=== PATIENT | male | born 1965 | race Caucasian/White ===

== ENCOUNTER 2025-01-06 14:36 | Emergency (ER) | payer OTHER, SELFPAY ==
[2025-01-06 14:46] VITALS: BP 157/92; PULSE 84; TEMP 37.6; O2SAT 99; BMI 34.2
--- OUTSIDE RECORDS SUMMARY | 2025-01-06 14:46 | XMS_ITS | Clinical Summary ---
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 Name Role Phone Unavailable Primary Care Provider Unavailabl e Social History Tobacco UseTypesPacks/DayYears UsedDateSmoking Tobacco: Never AssessedSex and Gender InformationValueDate RecordedSex Assigned at BirthNot on fileLegal Sex Male05/23/2022 6:42 PM EDTGender IdentityNot on fileSexual OrientationNot on file Last Filed Vital Signs Vital SignReadingTime TakenCommentsBlood Fliuxdhi270/9409 12:00 PM EDT Pulse--Temperature--Respiratory Rate--Oxygen Saturation--Inhaled Oxygen Concentration--Ppieeo449 kg (263 lb)11/13/2017 12:00 PM SXMXrqygy283.8 cm (5' 10 )11/13/2017 12:00 PM EDTBody Mass Index37.7411/13/2017 12:00 PM EDT Plan of Treatment Not on file
--- OUTSIDE RECORDS SUMMARY | 2025-01-06 14:46 | XMS_ITS | Clinical Summary ---
Author Organization [facility] Address [address] [place], [place] [address] Care Team Providers Care Radio Officer Name Role Phone Tyrone Littlejohn DO Primary Care Provider Allergies Active AllergyReactionsCriticalityNoted SihoYgjmxvjwDagipkwDbfecgr45/14/2018 Sulfa (Sulfonamide Antibiotics)GI Upset08/22/2017 Medications * This document contains information received from the source organization and may not represent a complete record from that organization. MedicationSigDispense QuantityRefillsLast FilledStart DateEnd DateStatus dulaglutide (TRULICITY) 0.75 mg/0.5 mL pnij Inject subcutaneously once each week.Active metFORMIN (GLUCOPHAGE) 1,000 mg tablet Take 1,000 mg by mouth twice daily with meals.Active omeprazole (PRILOSEC) 20 mg capsule Take 20 mg by mouth once daily.Active fenofibrate (LOFIBRA) 134 mg capsule Take 134 mg by mouth daily with breakfast.Active lisinopril (ZESTRIL, PRINIVIL) 10 mg tablet Take 10 mg by mouth once daily.Active montelukast (SINGULAIR) 10 mg tablet Take 10 mg by mouth daily at bedtime.Active Active Problems ProblemNoted DateDiagnosed DateConcussion with no loss of consciousness 01/02/2018 Social History Tobacco UseTypesPacks/DayYears UsedDateSmoking Tobacco: NeverSmokeless Tobacco: CurrentChewAlcohol UseStandard Drinks/WeekCommentsYes0 (1 standard drink = 0.6 oz pure alcohol)PHQ-2AnswerDate RecordedPHQ-2 irfvs674Area Deprivation IndexAnswerDate RecordedNational Score (1-100), lower number is lower riskNot on file02/16/2020State Score (1-10), lower number is lower riskNot on file 02/16/2020Data from: https://www.neighborhoodatlas.[facility].edu/. Last address used for calculationNot on file02/16/2020Sex and Gender InformationValue Date RecordedSex Assigned at BirthNot on fileLegal FgcUxve26/02/2012 9:16 AM EST Gender IdentityNot on fileSexual OrientationNot on file Last Filed Vital Signs Vital SignReadingTime TakenCommentsBlood Ampryclf179/65008/22/2017 1:59 PM EDT Nfsuc306708/22/2017 1:59 PM WNXDpxbkitbjkc67.9 ??C (98.4 ??F)08/22/2017 1:59 PM EDTRespiratory Maqa864208/22/2017 1:59 PM EDTOxygen Jelbhaecpz94%08/22/2017 1:59 PM EDTInhaled Oxygen Concentration--Eoaigm818.4 kg (256 lb 11.2 oz)08/22/2017 1:59 PM YJXGkxyqa630.3 cm (5' 11 )08/22/2017 1:59 PM EDTBody Mass Index35.8 08/22/2017 1:59 PM EDT Plan of Treatment Health MaintenanceDue DateLast DoneCommentsAnxiety Utberqmii61/27/1985Depression Izqowulws06/27/1985HIV Mlkguyjos55/27/1985Hepatitis C Rezeklfkm58/27/1985 Hepatitis B Vaccine (1 of 3 - 19+ 3-dose series)1985Lipid Screening 2001CT Ossaxouymmzg42/27/2012Cologuard (FIT-DNA)11/05/2011Colonoscopy 11/05/2011Colorectal Cancer Ygasrtaeu49/27/2012Diabetes Nhezbwbby95/27/2012Fecal Occult Blood11/05/2011Prostate Cancer Screening Kzdhyyfeks39/27/2012 Dcjpnejodqgnw29/27/2012Pneumococcal Vaccine: 50+ (2 of 2 - PCV)2016 04/23/2011Shingrix Vaccine (1 of 2)2016Covid-19 Vaccine (1 - 2024- season)2024Influenza Vaccine (#1)/03/2015, 04/07/2013 DTaP,Tdap,Td Vaccine (2 - Td or Tdap) Insurance Care Teams Team MemberRelationshipSpecialtyStart DateEnd Date Tyrone Littlejohn DO [address] [place] [phone] PCP - GeneralFamily Medicine08/23/17
--- OUTSIDE RECORDS SUMMARY | 2025-01-06 14:46 | XMS_ITS | Encounter Summary ---
Author Organization [facility] Address [id number] [address] 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 Name Role Phone Tyrone Littlejohn DO Primary Care Provider [phone] Reason for Visit * ReasonCommentsMed Refill Encounter Details DateTypeDepartmentCare Team (Latest Contact Info)Tssnuzrvljy81/25/2025Refill [facility] [address] [place] [address] Tyrone Littlejohn DO [address], [facility] [place] [address] Social History Tobacco UseTypesPacks/DayYears UsedDateSmoking Tobacco: NeverSmokeless Tobacco: FormerChewAlcohol UseStandard Drinks/WeekCommentsYes0 (1 standard drink = 0.6 oz pure alcohol)occasionalMER[facility] UtilitiesAnswerDate RecordedIn the past 12 months has the [place], gas, oil, or water [facility] [employer] threatened to shut off services in your home?No04/13/2024UDIT-CAnswerDate RecordedQ1: How often do you have a drink containing alcohol?2-4 times a month09/19/2022Q2: How many drinks containing alcohol do you have on a typical day when you are drinking?1 or Q3: How often do you have six or more drinks on one occasion?Never07/12/2023Overall Financial Resource Strain (CARDIA)AnswerDate RecordedHow hard is it for you to pay for the very basics like food, housing, medical care, and heating?Somewhat hard10/12/2024PHQ-2AnswerDate RecordedTotal Xgxgk012Finshriners hospitals for [facility] [place] of Occupational Health - Occupational Stress QuestionnaireAnswerDate RecordedDo you feel stress - tense, restless, nervous, or anxious, or unable to sleep at night because yourmind is troubled all the time - these days?Not at all09/19/2022 Exercise Vital SignAnswerDate RecordedOn average, how many days per week do you engage in moderate to strenuous exercise (like a brisk walk)?7 days10/12/2024On average, how many minutes do you engage in exercise at this level?20 min 10/12/2024PRAPARE - TransportationAnswerDate RecordedIn the past 12 months, has lack of transportation kept you from medical appointments or from getting medications?No07/13/2024In the past 12 months, has lack of transportation kept you from meetings, work, or from getting things needed for daily living?No 07/13/2024Housing InstabilityAnswerDate RecordedAre you worried or concerned that in the next two months you may not have stable housing that you own, rent or stay in as a part of a household?No07/13/2024hildcareAnswerDate RecordedDo problems getting child care lead teacher make it difficult for you to work or study?No 09/19/2022EmploymentAnswerDate RecordedDo you need help finding a local career center and/or a training program?No09/19/2022Hunger ScreeningAnswerDate Recorded Within the past 12 months we worried whether our food would run out before we got money to buy more.Never True10/12/2024Within the past 12 months the food we bought just didn't last and we didn't have money to get more.Never True 10/12/2024Purpose - LifeAnswerDate RecordedPurpose and direction in lifeUnknown 04/21/2020ex and Gender InformationValueDate RecordedSex Assigned at BirthNot on fileLegal VmjSsto4810/14/2014 11:59 AM EDTGender IdentityNot on fileSexual OrientationNot on filedocumented as of this encounter Plan of Treatment DateTypeDepartmentCare Team (Latest Contact Info)Gelzglcbceg10/07/2025 9:00 AM ESTOffice Visit [facility] of [facility] [address] [facility] [address] [place] [address] Stephanie Contreras MD [facility] [address] [place] [address] 04/14/2025 8:30 AM ESTOffice Visit [facility] [address] [place] [phone] Tyrone Littlejohn DO [address] [place] [address] documented as of this encounter Visit Diagnoses Not on filedocumented in this encounter Additional Health Concerns AssessmentNoted TimePHQ-9 Depression Total Score: 9:25 AM EDT documented as of this encounter Care Teams Team MemberRelationshipSpecialtyStart DateEnd Date Tyrone Littlejohn DO [address], [place] [address] PCP - GeneralFamily Maxpgvkr22/2/17documented as of this encounter
--- OUTSIDE RECORDS SUMMARY | 2025-01-06 14:46 | XMS_ITS | Clinical Summary ---
Author Organization [facility] Address [id number] [address] [place] [address] Care Team Providers Care Superintendent Quarry Name Role Phone Tyrone Littlejohn Primary Care Provider Allergies Active AllergyReactionsCriticalityNoted DateCommentsSulfa (Sulfonamide Antibiotics)Nhawcdg0912/10/2016 Medications MedicationSigDispense QuantityRefillsLast FilledStart DateEnd DateStatus aspirin 81 mg Take 1 tablet (81 mg total) by mouth in the morning.Active lancets 33 gauge misc Active diphenhydrAMINE-acetaminophen (TYLENOL PM EXTRA STRENGTH) 25-500 mg tablet Active metFORMIN (GLUCOPHAGE) 1000 mg tablet TAKE 1 TABLET BY MOUTH TWICE DAILY 180 tablet 4Active albuterol (PROVENTIL HFA;VENTOLIN HFA) 90 mcg/actuation inhaler Indications:Mild intermittent asthma, unspecified whether complicatedInhale 2 puffs every 6 (six) hours as needed for wheezing. 18 g 4Active omeprazole (PriLOSEC) 20 mg capsule Take 1 capsule (20 mg total) by mouth every other day.03/09/2024ctive cinnamon bark extract 500 mg tablet Take by mouth.Active blood-glucose meter misc 1 Unit by other route in the morning and 1 Unit in the evening. Take before meals. 1 each 5Active lisinopriL (PRINIVIL,ZESTRIL) 20 mg tablet TAKE 1 TABLET(20 MG) BY MOUTH IN THE MORNING 90 tablet 5Active pen needle, diabetic (BD ULTRA-FINE MINI PEN NEEDLE) 31 gauge x 3/16 needle Indications:Type 2 diabetes mellitus without complication, without long-term current use of insulin ([facility])USE 1 NEEDLE BY MISCELLANEOUS ROUTE IN THE MORNING. 100 each 5Active topiramate (TOPAMAX) 50 mg tablet Take 1 tablet (50 mg total) by mouth in the morning. 90 tablet 5Active TRUE METRIX GLUCOSE TEST STRIP strip USE 1 STRIP IN THE MORNING AND 1 STRIP BEFORE BEDTIME 200 strip 5Active insulin glargine-yfgn 100 unit/mL (3 mL) insulin pen Inject 35 Units under the skin in the morning. 45 mL 5Active rosuvastatin (CRESTOR) 10 mg tablet TAKE 1 TABLET BY MOUTH DAILY 90 tablet 5Active montelukast (SINGULAIR) 10 mg tablet TAKE 1 TABLET(10 MG) BY MOUTH EVERY MORNING 90 tablet 5Active montelukast (SINGULAIR) 10 mg tablet TAKE 1 TABLET(10 MG) BY MOUTH EVERY MORNING 90 tablet Discontinued Active Problems ProblemNoted DateDiagnosed DateMild intermittent zghxpz9509/19/2022Environmental orrcqmkpw24/19/2022Essential elpoxeawflsk39/19/0554Fqrnwgrmt42/19/2022 Lthxoajrgocjqo02/19/2608Bdcdoov51/19/2022Type 2 diabetes nimwzjcq80/19/2022 Concussion without loss of xowerhdxoqbet70/25/2018Sleep apnea08/25/2015 Encounters DateTypeDepartmentCare WbfmLmlfujzqcrk19/25/2025Refill [facility] [address] [place] [address] Tyrone Littlejohn, DO 12/04/2024Refill [facility] [address] [place] [address] Tyrone Littlejohn, DO 10/21/2024Orders Only [facility] [address] [place] [address] Tyrone Littlejohn, DO 10/21/2024Telephone [facility] [address] [place] [address] Elenita Mathias, [facility] 10/16/2024Refill [facility] [address] [place] [address] Jyo Natarajan, [facility] 10/16/2024Refill [facility] [address] [place] [address] Tyrone Littlejohn, 10/12/2024 9:30 AM EDTOffice Visit [facility] [address] [place] [address] Tyrone Littlejohn, DO Type 2 diabetes mellitus without complication, without long-term current use of insulin ([facility]) (Primary Dx); Essential hypertension; Gastritis without bleeding, unspecified chronicity, unspecified gastritis type; Chronic nonintractable headache, unspecified headache type10/11/2024Travelfrom Last 3 Months Immunizations ImmunizationAdministration DatesNext EzeZFA1904/19/2021Influenza (IM) Preservative Free12/09/2014Influenza, Im Trivalent Kyfcgeyfozql97/28/2014Influenza, Injectable, Rrcquifqncrl29/31/2018Influenza, Injectable, quadrivalent (PF) 01/07/2020,01/29/2018Influenza, Xubekwmgsij48/01/2016Pneumococcal Conjugate 13-Jwfsyh8001/29/2018,01/08/2018Pneumococcal Iwjlsmjwnlunrx24/13/2012Tdap 04/20/2021,10/16/2015Zoster Vaccine Jwxvskqpwie87/07/2025,04/13/2024 Family History Medical HistoryRelationNameCommentsNo Known ProblemsFather1/2 tonawanda ; didn't know himMelanomaHalf Brothermaternal 1/2 10 nyears youngerHeart attack Maternal GrandfatherDiabetes type IIMaternal GrandmotherHeart attackMaternal GrandmotherOtherMaternal Grandmothermalignant neoplastic diseaseOtherMother Abdominal aortic aneurysmStrokeMotherRelationNameStatusCommentsDaughterAlive FatherDeceasedHalf BrotherAliveMaternal GrandfatherMaternal GrandmotherMother DeceasedSonAlive Social History Tobacco UseTypesPacks/DayYears UsedDateSmoking Tobacco: NeverSmokeless Tobacco: FormerChew Tobacco Cessation:Counseling Given: Not Answered Alcohol UseStandard Drinks/WeekCommentsYes0 (1 standard drink = 0.6 oz pure alcohol)occasionalAHC UtilitiesAnswerDate RecordedIn the past 12 months has the electric, gas, oil, or water company threatened to shut off services in your home?No04/13/2024UDIT-CAnswerDate RecordedQ1: How often do you have a drink containing alcohol?2-4 times a month09/19/2022Q2: How many drinks containing alcohol do you have on a typical day when you are drinking?1 or Q3: How often do you have six or more drinks on one occasion?Never09/19/2022Overall Financial Resource Strain (CARDIA)AnswerDate RecordedHow hard is it for you to pay for the very basics like food, housing, medical care, and heating?Somewhat hard10/12/2024PHQ-2AnswerDate RecordedTotal Jctxb457Finst. [facility] [place] of Occupational Health - Occupational Stress QuestionnaireAnswerDate [...] of a household?No07/13/2024hildcareAnswerDate RecordedDo problems getting child and adolescent therapist make it difficult for you to work [...] InformationValueDate RecordedSex Assigned at BirthNot on fileLegal ZxsJpkm4410/14/2014 11:59 AM EDTGender IdentityNot on fileSexual OrientationNot on file Last Filed Vital Signs Vital SignReadingTime TakenCommentsBlood Xufcpblw067/78010/12/2024 9:30 AM EDT Fpeyg292210/12/2024 9:30 AM JESAxeptgbvfcv84.4 ??C (97.6 ??F)10/12/2024 9:30 AM EDTRespiratory Gqvg660310/12/2024 9:30 AM EDTOxygen Cjjiqlusbz82%10/12/2024 9:30 AM EDTInhaled Oxygen Concentration--Htdrmr362.1 kg (251 lb 9.6 oz)10/12/2024 9:30 AM NITTpsffa072.3 cm (5' 10.98 )10/12/2024 9:30 AM EDTBody Mass Index35.11 10/12/2024 9:30 AM EDT Plan of Treatment DateTypeDepartmentCare Team (Latest Contact Info)Epebthshhnv20/07/2025 9:00 AM ESTOffice Visit [facility] [address] [facility] [address] [place] [phone] Stephanie Contreras MD [address] [facility], [facility] [address] [place] [address] 04/14/2025 8:30 AM ESTOffice Visit [facility] [address] [place] [address] Tyrone Littlejohn, [address] [place] [address] Health MaintenanceDue DateLast DoneCommentsAdult BMI Follow Up Plan1984 Diabetic Foot Exam/iabetic Ophthalmology Exam09/17/2024 09/18/2023, 04/26/2022OVID-19 Vaccine ( season)/05/2020, 11/11/2020Influenza Wjvtnty08/, 01/29/2018, 01/08/2018, Additional history existsColon Cancer Screening 3 Year Vfoskyeyl01/05/2025 01/13/2022, 02/10/2018Adult BMI Cqjlfqcsh83/06/2024Depression Iqwdnktsr13/06/2024Tobacco Etdddyzki73Statin Use: Pjmiwces44/DTaP,Tdap and Td Vaccines (4 - Td or Tdap)04/20/2031 04/20/2021, 04/19/2021, 10/16/2015Zoster (Shingles) BxvtdqbUsjlwvtye46/07/2025, 04/13/2024 Medical Devices Not on file Procedures Procedure NamePriorityDate/TimeAssociated DiagnosisCommentsPOCT HEMOGLOBIN A1C Qaobrmt8110/12/2024 9:54 AM EDT Type 2 diabetes mellitus without complication, without long-term current use of insulin ([facility]) DIABETES EYE LUWASkkpnrj22/10/2024 12:10 PM EDTCOLOGUARD NON-PROMEDICARoutine 01/13/2022 9:00 AM EDT Screen for colon cancer from Last 3 Months or Most Recently Relevant to Health Maintenance Results * (ABNORMAL) POCT Hemoglobin A1c (10/12/2024 9:54 AM EDT)ComponentValueRef Range Test MethodAnalysis TimePerformed AtPathologist SignatureExternal Poct Hgb A1C 8.0(A)4 - 7 %MANUALLY TRANSCRIBED RESULTSSpecimen (Source)Anatomical Location / LateralityCollection Method / VolumeCollection TimeReceived TimeBlood 10/12/2024 9:54 AM EDT Narrative Authorizing ProviderResult TypeResult StatusDennis G Furlong DOPOINT OF CARE TEST ORDERABLESFinal ResultPerforming OrganizationAddressCity/State/ZIP Code Phone Number MANUALLY TRANSCRIBED RESULTS * DIABETES EYE EXAM (09/18/2023 12:10 PM EDT) Narrative Authorizing ProviderResult TypeResult StatusScanning Provider ExternalHEALTH MAINTENANCEEdited Result - FinalPerforming OrganizationAddressCity/State/ZIP CodePhone Number MANUALLY TRANSCRIBED RESULTS * Cologuard [facility] (01/13/2022 9:00 AM EDT)ComponentValueRef RangeTest MethodAnalysis TimePerformed AtPathologist SignatureEXTERNAL COLOGUARDNegative Rbmnouca94/11/2022 9:48 AM [employer] (CLIA #:[id number]) Comment: NEGATIVE TEST RESULT. A negative Cologuard result indicates a low likelihood that a colorectal cancer (CRC) or advanced adenoma (adenomatous polyps with more advanced pre-malignant features) ??is present. The chance that a person with a negative Cologuard test has a colorectal cancer is less than 1in 1500 (negative predictive value >99.9%) or has an advanced adenoma is less than 5.3% (negative predictive value 94.7%). These data are based on a prospective cross-sectional study of 10,000individuals at average risk for colorectal cancer who were screened with both Cologuard and colonoscopy. (Orlin Horn al, N Engl J Med 2014;370(14):8284-3185) The normal value (reference range) for this assay is negative. COLOGUARD RE-SCREENING RECOMMENDATION: Periodic colorectal cancer screening is an important part ofpreventive healthcare for asymptomatic individuals at average risk for colorectal cancer. ??Following a negative Cologuard result, the [place] [employer] and U.S. Multi-Society Task Force screening guidelines recommend a Cologuard re-screening interval of 3 years. References: [place] [employer] Guideline for Colorectal Cancer Screening: https://www.cancer.or g/cancer/vzvfg-vgpbhe-zgbwxd/rfuhvqxgq-bvavrsxau-tjvldja/acs-recommendations.htm benja; Hu HOU, Niharika MURCIA, Luan MartK, Colorectal Cancer Screening: Recommendations for Physicians and Patients from the U.S. Multi-Society Task Force on Colorectal Cancer Screening , Am J Gastroenterology 2017; 112:0258-9406. TEST DESCRIPTION: Composite algorithmic analysis of stool DNA-biomarkers with hemoglobin immunoassay. ?? Quantitative values of individual biomarkers are not reportable and are not associated with individual biomarker result reference ranges. Cologuard is intended for colorectal cancer screening ofadults of either sex, 45 years or older, who are at average-risk for colorectal cancer (CRC). Cologuard has been approved for use by the U.S. FDA. The performance of Cologuard was established in a cross sectional study of average-risk adults aged 50-84. Cologuard performance in patients ages 45 to 49 years was estimated by sub-group analysis of near-age groups. Colonoscopies performed for a positive result may find as the most clinically significant lesion: colorectal cancer [4.0%], advanced adenoma (including sessile serrated polyps greater than or equal to 1cm diameter) [20%] or non- advanced adenoma [31%]; or no colorectal neoplasia [45%]. These estimates are derived from a prospective cross-sectional screening study of 10,000 individuals at average risk for colorectal cancer who were screened with both Cologuard and colonoscopy. (Orlin Kramer, N Engl J Med 2014;370(14):7820-2336.) Cologuard may produce a false negative or false positive result (no colorectal cancer or precancerous polyp present at colonoscopy follow up). A negative Cologuard test result does not guarantee the absence of CRC or advanced adenoma (pre-cancer). The current Cologuard screening interval is every 3 years. ([place] [employer] Society and U.S. Multi-Society Task Force). Cologuard performance data in a 10,000 patient pivotal study using colonoscopy as the reference method can be accessed at the following location: www.[employer].AMS-Qi/results. Additional description of the Cologuard test process, warnings and precautions can be found at www.cologuard.com. Specimen (Source)Anatomical Location / LateralityCollection Method / Volume Collection TimeReceived TimeStool specimen (specimen)Rectum structure / Unknown 01/13/2022 9:00 AM EDT103/17/2021 3:38 PM EST Narrative Authorizing ProviderResult TypeResult StatusTyrone Littlejohn DOLAB ORDERABLES Final ResultPerforming OrganizationAddressCity/State/ZIP CodePhone Number [employer] (CLIA #:[id number]) [address] [place] [address], from Last 3 Months or Most Recently Relevant to Health Maintenance Insurance Care Teams Team MemberRelationshipSpecialtyStart DateEnd Date Tyrone Littlejohn DO [address], [facility] [place] [address] [facility] Ieburwfv60/2/17
--- NOTE | 2025-01-06 14:58 | XR_ITS ---
The [address] [address] Patient Name: REEMA GOHTRA MRN: [id number] date: 1965 Sex: M Assigned Patient Location: ED.MAIN Current Patient Location: ED.MAIN Accession/Order Number: [id number] Exam Date: 01/06/2025 15:28 Report Date: 01/06/2025 16:40 At the request of: ROYCE BANKS MD Procedure: XR knee RT 3V RIGHT KNEE - 3 views CLINICAL HISTORY: Twisted, pain COMPARISON: None FINDINGS: Small joint effusion. Mild degenerative changes without acute bony process. XR/XR knee RT 3V IMPRESSION: MILD DEGENERATIVE CHANGES WITH SMALL JOINT EFFUSION. NO ACUTE BONY PROCESS. Impression dictated by: Darrick Villanueva Jr., D.O. 01/06/2025 4:40 PM Dictation Location: [place] [address] Electronically authenticated by: [id number] Y Date: 01/06/2025 16:40
--- NOTE | 2025-01-06 14:59 | ED.GENADUL1 ---
HPI HPI - General Adult General Chief complaint: Extremity Injury, Lower Stated complaint: LOWER EXTREMITY INJURY Time Seen by Provider: 01/06/25 14:55 Source: patient Mode of arrival: Wheelchair History of Present Illness HPI narrative: 59-year-old male presents for right knee pain. He was walking his dog and the dog lunged and it twisted his knee. The patient felt a popping sensation. He has had issues with that knee in the past and has had to arthroscopies. He was told that if he had problems in the future he might need a knee replacement. His orthopedist is now retired. No other injury was sustained. He does not have pain in the hip or ankle. Related Data Home Medications ?Medication ?Instructions ?Recorded ?Confirmed lisinopril 20 mg tablet mg 01/06/25 metformin 1,000 mg tablet 1,000 mg PO BID 01/06/25 01/06/25 montelukast 10 mg tablet mg 01/06/25 rosuvastatin 10 mg tablet mg 01/06/25 topiramate 50 mg tablet mg 01/06/25 Previous Rx's ?Medication ?Instructions ?Recorded acetaminophen 300 mg-codeine 30 mg 1 tab PO Q6H PRN pain 5 days #20 01/06/25 tablet tabs ibuprofen 800 mg tablet 800 mg PO Q8H PRN pain #20 tabs 01/06/25 Allergies Allergy/AdvReac Type Severity Reaction Status Date / Time No Known Drug Allergies Allergy Verified 01/06/25 14:45 Opioid HPI Opioid Management Most Recent Opioid Data: Last Pain Scale 8 Today, 15:45 Last ED Pain Assessment Today, 15:45 Review of Systems ROS Narrative A ten point review of systems is negative except as noted above. PFSH PFSH Social History Little interest or pleasure in doing things: not at all Feeling down, depressed, or hopeless: not at all Exam Narrative Exam Narrative: Nurses note and vital signs reviewed General:The patient appears well and in no apparent distress.Patient is resting comfortably on cart. Skin:Warm, dry, no pallor noted.There is no rash noted. Head:Normocephalic, atraumatic Eye: Normal conjunctiva, no drainage Ears, Nose, Mouth, and Throat: oral mucosa is moist. Nares patent. Cardiovascular:Regular Rate and Rhythm Respiratory:Patient is in no distress, no accessory muscle use, lungs are clear to auscultation, no wheezing, rales or rhonchi Back:non-tender GI:Normal bowel sounds, no tenderness to palpation, no masses appreciated.No rebound, guarding, or rigidity noted. Musculoskeletal: Right knee is mildly swollen compared to the contralateral. No ballotable effusion of the knee joint is stable. Ankle and hip are nontender. Neurological:A&O, normal speech Psychiatric:Cooperative Constitutional Vital Signs, click to edit/add: Last Vital Signs Temp 99.6 F 01/06/25 14:46 Pulse 84 01/06/25 14:46 Resp 18 01/06/25 14:46 BP 157/92 H 01/06/25 14:46 Pulse Ox 99 01/06/25 14:46 O2 Del Method Room Air 01/06/25 14:46 Course Vital Signs Vital signs: Vital Signs Temperature 99.6 F 01/06/25 14:46 Pulse Rate 84 01/06/25 14:46 Respiratory Rate 18 01/06/25 14:46 Blood Pressure 157/92 H 01/06/25 14:46 Pulse Oximetry 99 01/06/25 14:46 Oxygen Delivery Method Room Air 01/06/25 14:46 Temperature 99.6 F 01/06/25 14:46 Pulse Rate 84 01/06/25 14:46 Respiratory Rate 18 01/06/25 14:46 Blood Pressure 157/92 H 01/06/25 14:46 Pulse Oximetry 99 01/06/25 14:46 Oxygen Delivery Method Room Air 01/06/25 14:46 Medical Decision Making MDM Narrative Medical decision making narrative: X-ray shows small effusion and degenerative changes. Shola wrap applied, application checked by me and found to be appropriate, he is neurovascularly intact. He is also placed on crutches and is referred to orthopedics. He was prescribed Tylenol 3 and ibuprofen. Treatment diagnosis and follow-up were discussed with the patient. Differential Diagnosis Differential Diagnosis: Facture, sprain, effusion, meniscal tear Imaging Data Knee x-ray: Radiologist's impression: ITS Impressions Knee X-Ray 01/06/25 14:58 IMPRESSION: MILD DEGENERATIVE CHANGES WITH SMALL JOINT EFFUSION. NO ACUTE BONY PROCESS. Impression dictated by: Darrick Villanueva Jr., D.O. 01/06/2025 4:40 PM Dictation Location: [place] [id number] Electronically authenticated by: [id number] Y Date: 01/06/2025 16:40 Discharge Plan Discharge Chief Complaint: Extremity Injury, Lower Clinical Impression: Right knee sprain Patient Disposition: Home, Self-Care Time of Disposition Decision: 16:51 Condition: Good Mode of Transportation: Private Vehicle Prescriptions / Home Meds: New acetaminophen-codeine 300-30 mg tablet 1 tab PO Q6H PRN (Reason: pain) 5 Days Qty: 20 0RF ibuprofen 800 mg tablet 800 mg PO Q8H PRN (Reason: pain) Qty: 20 0RF No Action lisinopril 20 mg tablet montelukast 10 mg tablet rosuvastatin 10 mg tablet topiramate 50 mg tablet metformin 1,000 mg tablet 1,000 mg PO BID Print Language: Armenian Instructions: Knee Sprain (ED), Crutch Instructions (ED) Referrals: SHELLEY HOLLY [Primary Care Provider, Family Practice] - 1 week Rob Braden MD [Physician, Orthopedics] - 1 week
[2025-01-06] MEDS: ACETAMINOPHEN 300 MG/ 30 MG CODEINE TABLET 1 TAB PO (17:07)
== END 2025-01-06 17:12 | disposition home or self-care (01) ==
PROVIDERS: Emergency Provider Emergency Medicine; PCP Family Medicine
DX: S83.8X1A Sprain of other specified parts of right knee, initial encounter (principal); M25.461 Effusion, right knee; M25.561 Pain in right knee; Y93.K1 Activity, walking an animal; X50.1XXA Overexertion from prolonged static or awkward postures, initial encounter
CPT/HCPCS: 73562; 99284